=== PATIENT | male | born 1990 | race Caucasian/White ===

== ENCOUNTER 2017-05-16 14:35 | Emergency (ER) | payer OTHER ==
[~2017-05-16] VITALS: Ht 175.3 cm; Wt 72.6 kg
[~2017-05-16 14:35] MED LIST: BACTROBAN 2% C1 INCH EX; TYLENOL W/120 ML/BOT PO; WELLBUTRIN 150150 MG PO
--- OUTSIDE RECORDS SUMMARY | 2017-05-16 15:22 | External Medical Summary Rpt | CCD ---
Author Author , FIGUEROA MARTI Address Unknown Phone [email or web address] Purpose Continuity of Care Document - through 2016
--- OUTSIDE RECORDS SUMMARY | 2017-05-16 15:22 | External Medical Summary Rpt | CCD ---
Author Author , FIGUEROA Organization FIGUEROA Address Unknown Phone [email or web address] Immunization Name Date Rout CVX Reac Dose Comm Prov Is Faci e tion ent ider Refu lity Give sed n DTaP 07-0 107 999 Hist H149 No H149 , UF 8-19 oric 97 al Info rmat ion - Sour ce Unsp ecif ied Tan 07-0 2 999 Hist H149 No H149 o-OP 8-19 oric V 97 al Info rmat ion - Sour ce Unsp ecif ied MMR 07-0 3 999 Hist H149 No H149 8-19 oric 97 al Info rmat ion - Sour ce Unsp ecif ied
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
--- OUTSIDE RECORDS SUMMARY | 2017-05-16 15:22 | External Medical Summary Rpt | CCD ---
Author Author , FIGUEROA Organization FIGUEROA Address Unknown Phone [email or web address] Immunization Name Date Rout CVX Reac Dose [...]
--- OUTSIDE RECORDS SUMMARY | 2017-05-16 15:22 | External Medical Summary Rpt | CCD ---
Author Author , FIGUEROA MARTI Address Unknown Phone [email or web address] Purpose Continuity of Care Document - 11-21-2013 [...] on SYPHILIS IGG TEST (EIA) (11-21-2013 15:45) Telephone Quotation Clerk: Niurka Gant MD [facility] Lab: [facility] Division of Laboratory Services Lab Address: [address] [place] [address], [address] [place] [id number] 11-21-2013 3:45 pm Specimen Collection Start Date/Time: Smoke Room Operator: Specimen Mor'tanvi 11-23-2013 9:08 am Date/Time: Ordering Physician: [facility] 11-23-2013 2:32 pm Results Rpt/Status Change Date/Time: [...] 15:45 COLLECT D LONG, complet OR 014 medical technical writer 15:45 CHLAMYDIA AND GONORRHEA TESTING (11-21-2013 15:30) Telephone Quotation Clerk: Niurka Gant MD [facility] Lab: [facility] Division of Laboratory Services Lab Address: [address], [address] [place] [address] 11-21-2013 3:30 pm Specimen Collection Start Date/Time: Smoke Room Operator: Specimen Mor'tanvi 11-23-2013 9:03 am Date/Time: Ordering Physician: [facility] 11-26-2013 8:50 am Results Rpt/Status Change Date/Time: [...] COLLECT 11-21- D LONG, complet OR 014 medical technical writer 15:30
--- OUTSIDE RECORDS SUMMARY | 2017-05-16 15:22 | External Medical Summary Rpt | CCD ---
Author Author , FIGUEROA MARTI Address Unknown Phone [email or web address] Purpose Continuity of Care Document - through 2016
[2017-05-16] MEDS ORDERED: BACTRIM DS 8001 TA1 PO (15:27)
--- NOTE | 2017-05-16 15:28 | Emergency Room Report ---
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 N Clinical Suspician of Infection? N Mental Status: 1 - Regular (Normal Baseline) Sepsis Risk:Low Sepsis Risk Have you (or family members/close friends) recently traveled outside the [place]? N If Yes, where/when: Have you had exposure to infectious disease within the past month? N TB? Other? Specify: Source patient, RN notes reviewed, RN/MD Exam Limitations no limitations Comment Patient is here with a LEFT index laceration with a box loader sustained just prior to arrival. ALLERGIES Coded Allergies: SHELLFISH (FOOD) (I-RASH 06/06/16) History Medical History General CAD? No Angina: No OR: No Hypertension? No Hyperlipidemia? No CHF? No DVT? No PE? No COPD? No Asthma? No Anemia? No GERD? No Gastric ulcers? No GI Bleed? No Hernia? No Thyroid Problems? No Hypothyroidism? No CVA? No Seizures? No Diabetes? No Renal Insuffiency? No End Stage Renal Disease? No UTI? No Stones? No BPH? No GB Disease: No Nephritic Syndrome? No Asplenia? No Hepatitis? No Sickle Cell Disease? No Arthritis? No Migraines? No Cataracts? No Glaucoma? No MRSA? No HIV? No TB? No Anxiety? No Depression? No Cancer? No More? No Immunization Hx DT/Tetanus 1-4 Years Ago Surgical Hx Previous Surgery?Y Ear tubes Tonsils Family History Family Hx Diabetes Yes CAD Yes Hypertension No Hyperlipidemia No Cancer Yes TB No Social History Smoking Hx Smoker: Current Every Day Smoker Tobacco: Yes Type Cigarettes Packs/day < 1 Pack Alcohol Alcohol: Yes Review of Systems All Other Systems Reviewed and Negative Skin lesions (laceration) Physical Exam Vital Signs Vital Signs Date Time Temp Pulse Resp B/P Pulse O2 O2 Flow FiO2 Ox Delivery Rate 05/16 1536 98.4 74 16 128/74 98 05/16 1438 98.4 74 16 136/80 98 General Appearance normal appearance, WD/WN, no apparent distress Respiratory Status Yes: trachea midline, chest symmetrical, non tender chest. No: respiratory distress. Lung Sounds bilateral: normal breath sounds, lungs clear. Cardiovascular normal exam, regular rate/rhythm, no peripheral edema, no gallop, no JVD, no murmur, no rub, normal peripheral pulses Gastrointestinal normal bowel sounds, normal exam, non tender, soft, no organomegaly Extremities normal range of motion, left distal index laceration 2 cm, subcutaneous Neurologic alert, minister II-XII nml as tested, normal exam, oriented x 3 Mental status normal mood/affect Skin normal color, warm/dry, LEFT index laceration, (something, centimeters) Medical Decision Making LABS/Meds/Orders Pt receiving controlled substance in ED? No Comment Patient tolerated the procedure well, discharged from the ER in no acute distress. Results/Orders Current Medication Orders Sig/Kal Start time Last Medication Dose Route Stop Time Status Admin Lidocaine HCl 0 .STK-MED ONE 05/16 1447 DC .ROUTE Procedures Laceration/Wound Repair Laceration/Wound Repair Risks/benefits discussed with pt/guardian? Yes Tetanus status up to date Wound Location LEFT index distal phalange 2 cm laceration Wound Length (cm) 2 Wound's Depth, Shape sucutaneous tissue Wound Explored clean Risk of retained FB explained to pt/guardian? Yes Irrigated w/ Saline (ccs) 20 Wound Prep Betadine, Saline Anesthesia 1% Lidocaine, Local Volume Anesthetic (ccs) 20 Wound Debrided none Wound Repaired With sutures Suture Size/Type 4:0, Ethilon Total Number Sutures 5 Sterile Dressing Applied Yes Splint Applied No Departure Departure Time of Disposition 1524 Disposition DC Home or Self Care(routine) Clinical Impression Primary Impression: Finger laceration Qualifiers: Encounter type: initial encounter Finger: index finger Damage to nail status: without damage Foreign body presence: without foreign body Laterality: left Qualified Code: S61.211A - Laceration without foreign body of left index finger without damage to nail, initial encounter Condition STABLE Referrals Kunal ALMEIDA,Al Cantu (Family) in 9-10 days for suture removal Patient Instructions DI for Open Laceration Additional Instructions Keep wound clean, dry, cover with triple antibiotic ointment. Watch for signs of infection: red, swollen, hot, tender, purulent discharge. ~ Increased pain or develops fever.~ Drainage or bad odor from wound.~ Notify physician or return to Emergency Department if these develop. Tylenol/Ibuprofen as needed for pain. Have stitches removed as instructed by physician in 9-10 days. Contact your MD in office in a.m. to report progress and arrange follow up. If problems worsen, or new problems arise, contact MD promptly or return to ED. Discharge Counseling Counseled pt/family regarding diagnosis, medications/RX, home care, follow up needs Comment Keep wound clean, dry, cover with triple antibiotic ointment. Watch for signs of infection: red, swollen, hot, tender, purulent discharge. ~ Increased pain or develops fever.~ Drainage or bad odor from wound.~ Notify physician or return to Emergency Department if these develop. Tylenol/Ibuprofen as needed for pain. Have stitches removed as instructed by physician in 9-10 days. Contact your MD in office in a.m. to report progress and arrange follow up. If problems worsen, or new problems arise, contact MD promptly or return to ED. Prescriptions Current Visit Scripts SULFAMETHOXAZOLE W/TRIMETHOPRI (Bactrim Ds Tab) 1 TABLET PO BID #20 TAB ED Critical Care Critical Care No at 7497
--- NOTE | 2017-05-16 15:28 | Emergency Room Report ---
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 N Clinical Suspician of Infection? N Mental Status: 1 - Regular (Normal Baseline) Sepsis Risk:Low Sepsis Risk Have you (or family members/close friends) recently traveled outside the [place]? N If Yes, where/when: Have you had exposure to infectious disease within the past month? N TB? Other? Specify: Source patient, RN notes reviewed, RN/MD Exam Limitations no limitations Comment Patient is here with a LEFT index laceration with a weigh box tender sustained just prior to arrival. ALLERGIES Coded Allergies: SHELLFISH (FOOD) (I-RASH 06/06/16) History Medical History General CAD? No Angina: No MA: No Hypertension? No Hyperlipidemia? No CHF? No DVT? No PE? No COPD? No Asthma? No Anemia? No GERD? No Gastric ulcers? No GI Bleed? No Hernia? No Thyroid Problems? No Hypothyroidism? No CVA? No Seizures? No Diabetes? No Renal Insuffiency? No End Stage Renal Disease? No UTI? No Stones? No BPH? No GB Disease: No Nephritic Syndrome? No Asplenia? No Hepatitis? No Sickle Cell Disease? No Arthritis? No Migraines? No Cataracts? No Glaucoma? No MRSA? No HIV? No TB? No Anxiety? No Depression? No Cancer? No More? No Immunization Hx DT/Tetanus 1-4 Years Ago Surgical Hx Previous Surgery?Y Ear tubes Tonsils Family History Family Hx Diabetes Yes CAD Yes Hypertension No Hyperlipidemia No Cancer Yes TB No Social History Smoking Hx Smoker: Current Every Day Smoker Tobacco: Yes Type Cigarettes Packs/day < 1 Pack Alcohol Alcohol: Yes Review of Systems All Other Systems Reviewed and Negative Skin lesions (laceration) Physical Exam Vital Signs Vital Signs Date Time Temp Pulse Resp B/P Pulse O2 O2 Flow FiO2 Ox Delivery Rate 05/16 1536 98.4 74 16 128/74 98 05/16 1438 98.4 74 16 136/80 98 General Appearance normal appearance, WD/WN, no apparent distress Respiratory Status Yes: trachea midline, chest symmetrical, non tender chest. No: respiratory distress. Lung Sounds bilateral: normal breath sounds, lungs clear. 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 No Comment Patient tolerated the procedure well, discharged from the ER in no acute distress. Results/Orders Current Medication Orders Sig/Kal Start time Last Medication Dose Route Stop Time Status Admin Lidocaine HCl 0 .STK-MED ONE 05/16 1447 DC .ROUTE Procedures Laceration/Wound Repair Laceration/Wound Repair Risks/benefits discussed with pt/guardian? Yes Tetanus status up to date Wound Location LEFT index distal phalange 2 cm laceration Wound Length (cm) 2 Wound's Depth, Shape sucutaneous tissue Wound Explored clean Risk of retained FB explained to pt/guardian? Yes Irrigated w/ Saline (ccs) 20 Wound Prep Betadine, Saline Anesthesia 1% Lidocaine, Local Volume Anesthetic (ccs) 20 Wound Debrided none Wound Repaired With sutures Suture Size/Type 4:0, Ethilon Total Number Sutures 5 Sterile Dressing Applied Yes Splint Applied No Departure Departure Time of Disposition 1524 Disposition DC Home or Self Care(routine) Clinical Impression Primary Impression: Finger laceration Qualifiers: Encounter type: initial encounter Finger: index finger Damage to nail status: without damage Foreign body presence: without foreign body Laterality: left Qualified Code: S61.211A - Laceration without foreign body of left index finger without damage to nail, initial encounter Condition STABLE Referrals Kunal ALMEIDA,Al Cantu (Family) in 9-10 days for suture removal Patient Instructions DI for Open Laceration Additional Instructions Keep wound clean, dry, cover with triple antibiotic ointment. Watch for signs of infection: red, swollen, hot, tender, purulent discharge. ~ Increased pain or develops fever.~ Drainage or bad odor from wound.~ Notify physician or return to Emergency Department if these develop. Tylenol/Ibuprofen as needed for pain. Have stitches removed as instructed by physician in 9-10 days. Contact your MD in office in a.m. to report progress and arrange follow up. If problems worsen, or new problems arise, contact MD promptly or return to ED. Discharge Counseling Counseled pt/family regarding diagnosis, medications/RX, home care, follow up needs Comment Keep wound clean, dry, cover with triple antibiotic ointment. Watch for signs of infection: red, swollen, hot, tender, purulent discharge. ~ Increased pain or develops fever.~ Drainage or bad odor from wound.~ Notify physician or return to Emergency Department if these develop. Tylenol/Ibuprofen as needed for pain. Have stitches removed as instructed by physician in 9-10 days. Contact your MD in office in a.m. to report progress and arrange follow up. If problems worsen, or new problems arise, contact MD promptly or return to ED. Prescriptions Current Visit Scripts SULFAMETHOXAZOLE W/TRIMETHOPRI (Bactrim Ds Tab) 1 TABLET PO BID #20 TAB ED Critical Care Critical Care No at 4179
[2017-05-16 15:36] VITALS: BP 128/74
== END 2017-05-16 15:36 | disposition home or self-care (01) ==
LOC: ER 14:35
PROC: 0HQGXZZ Repair Left Hand Skin, External Approach (ICD-10-PCS; principal; 2017-05-16)
DX: S61.211A Laceration without foreign body of left index finger without damage to nail, initial encounter (principal); W26.0XXA Contact with knife, initial encounter; Y93.89 Activity, other specified; Y92.89 Other specified places as the place of occurrence of the external cause; Y99.0 Civilian activity done for income or pay; F17.210 Nicotine dependence, cigarettes, uncomplicated; Z91.013 Allergy to seafood